=== PATIENT | male | born 1990 | race American Indian/Alaskan Native ===

== ENCOUNTER 2019-11-03 07:42 | Emergency (ER) | payer SELFPAY ==
[2019-11-03 07:51] VITALS: BP 151/95
--- NOTE | 2019-11-03 08:38 | Emergency Department Report ---
Chief Complaint: Shoulder Injury Stated Complaint: RIGHT PAIN Time Seen by Provider: 11/03/19 08:28 - HPI History of Present Illness: 29-year-old -[place]ux[place]bour[place] male presents to the emergency room complaining of nontraumatic right arm and shoulder pain for a week. 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 Patient reports that anything for pain. He denies any direct trauma. Denies any chest pain shortness of breathing nausea vomiting. - Exam Vital Signs: Vital Signs 11/03/19 07:49 Temperature 98.2 F Pulse Rate 89 Respiratory 16 Rate Blood Pressure 151/95 O2 Sat by Pulse 100 Oximetry Physical Exam: Alert and oriented x3 no acute distress nontoxic in appearance Right shoulder no AC joint tenderness full range of motion no rash nonerythematous no swelling abduction and abduction. Ambulatory without difficulties. Stable mood. MSE screening note: Focused history and physical exam performed. Due to findings the following was ordered: 29-year-old -[place]ux[place]bour[place] male presents to the emergency room complaining of nontraumatic right arm and shoulder pain for a week. 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 Patient reports that anything for pain. He denies any direct trauma. Denies any chest pain shortness of breathing nausea vomiting. Recommend Tylenol or ibuprofen or Aleve. Recommend taking it on a scheduled basis for the next few days with increasing his fluid intake. I recommend for follow-up at [facility] for his chronic disease management. Patient verbalized understanding ED Disposition for [facility] [place] Disposition: Z-07 MED SCREENING EXAM-LEFT Is pt being admited?: No Does the pt Need Aspirin: No Condition: Stable Additional Instructions: Recommend taking ibuprofen Tylenol or Aleve on a scheduled basis for the next 3 days. I would like for you to increase your water intake. And follow-up with [facility] for your chronic hypertension. Referrals: [facility] [Primary Care Provider] - 3-5 Days [facility] [Provider Group] - 3-5 Days Forms: Work/School Release Form(ED)
== END 2019-11-03 08:41 | disposition left against medical advice (07) ==
LOC: ED 07:42
DX: M79.601 Pain in right arm (principal); Z53.21 Procedure and treatment not carried out due to patient leaving prior to being seen by health care provider

== ENCOUNTER 2021-07-07 11:53 | Emergency (ER) | payer SELFPAY ==
[2021-07-07] MEDS ORDERED: FAMOTIDINE 20 MG TAB PO ONE (18:05)
[2021-07-07] MEDS ORDERED: diphenhydrAMINE 25 MG CAP PO ONE (18:05)
[2021-07-07] MEDS ORDERED: predniSONE 20 MG TAB PO ONE (18:05)
--- NOTE | 2021-07-07 18:38 | Emergency Department Report ---
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 Patient states that he mowed lawns 2 days ago and thereafter started having persistent diffuse itchy erythematous rashes with irritation and went to [employer] and bought some lotions but that this medication did not help. Patient denies swollen lips and tongue, dysphagia, dysphonia, chest pain or shortness of breath, nausea and vomiting, swollen lips or tongue, swollen face, change in vision, diarrhea and abdominal pain. MD Complaint: Diffuse itchy erythematous maculopapular rashes -: Sudden, days(s) (2) Location: back, abdomen, upper extremity, lower extremity Radiation: non-radiation Severity scale (0 -10): 7 Quality: burning, aching, sharp Consistency: constant Improves with: none Worsens with: other (Scratching) Associated Symptoms: denies other symptoms, rash (Diffuse itchy erythematous maculopapular rashes). denies: confusion, chest pain, cough, diaphoresis, fever/chills, headaches, loss of appetite, malaise, nausea/vomiting, shortness of breath, syncope, weakness Treatments Prior to Arrival: none - Related Data Previous Rx's Medication Instructions Recorded Last Taken Type Famotidine [Pepcid] 20 mg PO BID #60 tablet 07/07/21 Unknown Rx Prednisone [predniSONE 10 mg 10 mg PO .TAPER #21 tab 07/07/21 Unknown Rx (6-Day Pack, 21 Tabs)] diphenhydrAMINE [Benadryl CAP] 50 mg PO Q6HR PRN #40 capsule 07/07/21 Unknown Rx Allergies Allergy/AdvReac Type Severity Reaction Status Date / Time poison brianna extract Allergy Rash Verified 07/07/21 12:11 ED Review of Systems ROS: Stated complaint: RT ARM RASH/POISON BRIANNA Other details as noted in HPI Constitutional: denies: chills, fever Eyes: denies: eye pain, eye discharge, vision change ENT: denies: ear pain, throat pain Respiratory: denies: cough, shortness of breath, wheezing Cardiovascular: denies: chest pain, palpitations Endocrine: no symptoms reported Gastrointestinal: denies: abdominal pain, nausea, diarrhea Genitourinary: denies: urgency, dysuria Musculoskeletal: denies: back pain, joint swelling, arthralgia Skin: rash (Diffuse itchy erythematous maculopapular urticarial rashes), change in color, pruritus. denies: lesions Neurological: denies: headache, weakness, paresthesias Psychiatric: denies: anxiety, depression Hematological/Lymphatic: denies: easy bleeding, easy bruising ED Past Medical Hx - Past Medical History Previous Medical History?: Yes Hx Hypertension: Yes (not taking meds) - Social History Smoking Status: Current Every Day Smoker Substance Use Type: Alcohol - Medications Home Medications: Home Medications Medication Instructions Recorded Confirmed Last Taken Type Famotidine [Pepcid] 20 mg PO BID #60 tablet 07/07/21 Unknown Rx Prednisone [predniSONE 10 mg 10 mg PO .TAPER #21 tab 07/07/21 Unknown Rx (6-Day Pack, 21 Tabs)] diphenhydrAMINE [Benadryl CAP] 50 mg PO Q6HR PRN #40 capsule 07/07/21 Unknown Rx ED Physical Exam - General Limitations: No Limitations General appearance: alert, in no apparent distress - Head Head exam: Present: atraumatic, normocephalic, normal inspection - Eye Eye exam: Present: normal appearance, PERRL, EOMI Pupils: Present: normal accommodation - ENT ENT exam: Present: normal exam, normal orophraynx, mucous membranes moist, TM's normal bilaterally, normal external ear exam - Neck Neck exam: Present: normal inspection, full ROM - Respiratory Respiratory exam: Present: normal lung sounds bilaterally. Absent: respiratory distress, wheezes, rales, stridor, chest wall tenderness, accessory muscle use, decreased breath sounds - Cardiovascular Cardiovascular Exam: Present: regular rate, normal rhythm, normal heart sounds. Absent: systolic murmur, diastolic murmur, rubs, gallop - GI/Abdominal GI/Abdominal exam: Present: soft, normal bowel sounds. Absent: tenderness, guarding, rebound, hyperactive bowel sounds - Rectal Rectal exam: Present: deferred - Extremities Exam Extremities exam: Present: normal inspection, full ROM, normal capillary refill - Back Exam Back exam: Present: normal inspection, full ROM. Absent: tenderness, CVA tenderness (R), CVA tenderness (L), muscle spasm, paraspinal tenderness - Neurological Exam Neurological exam: Present: alert, oriented X3, CN II-XII intact, normal gait - Psychiatric Psychiatric exam: Present: normal affect, normal mood - Skin Skin exam: Present: warm, dry, intact, rash (Diffuse itchy erythematous maculopapular urticarial rash), erythema, urticaria. Absent: normal color ED Course Vital Signs 07/07/21 12:09 Temperature 98.3 F Pulse Rate 74 Respiratory 16 Rate Blood Pressure 127/80 O2 Sat by Pulse 100 Oximetry ED Medical Decision Making - Medical Decision Making This is a 31-year-old -[place] male with no past medical history presents to the ED with complaint of acute onset persistent itchy erythematous maculopapular rashes for the last 2 days after exposure to poison brianna when mowing lawns. Patient states that he mowed lawns 2 days ago and thereafter started having persistent diffuse itchy erythematous rashes with irritation and went to [employer] and bought some lotions but that this medication did not help. In the ED, patient is alert and oriented x3 and is not in any distress. Patient is hemodynamically stable. Patient was treated in the ED for acute allergic reaction after exposure to poison brianna. Patient was discharged home on medications and advised to follow-up with his primary care physician in 7 to 10 days for reevaluation or return to the ED immediately if symptoms get worse - Differential Diagnosis Acute allergic reaction; acute urticaria; irritant dermatitis; Critical care attestation.: If time is entered above; I have spent that time in minutes in the direct care of this critically ill patient, excluding procedure time. ED Disposition Clinical Impression: Poison brinana dermatitis, Acute urticaria, Itching with irritation Acute allergic reaction Qualifiers: Encounter type: initial encounter Qualified Code(s): T78.40XA - Allergy, unspecified, initial encounter Disposition: HOME / SELF CARE / HOMELESS Is pt being admited?: No Does the pt Need Aspirin: No Condition: Stable Instructions: Allergies, Adult, [id number], Poison Brianna Dermatitis, Easy -to-Read, Contact Dermatitis, [id number], Hives, [id number], Rash, Adult, [id number] Additional Instructions: Take medication with food, drink plenty of fluids and follow-up with your primary care physician in 7 to 10 days for reevaluation. Return to the ED immediately if symptoms get worse. Prescriptions: diphenhydrAMINE [Benadryl CAP] 50 mg PO Q6HR PRN #40 capsule PRN Reason: Itching Famotidine [Pepcid] 20 mg PO BID #60 tablet Prednisone [predniSONE 10 mg (6-Day Pack, 21 Tabs)] 10 mg PO .TAPER #21 tab Referrals: [facility] [Provider Group] - 3-5 Days Time of Disposition: 18:39 Print Language: ROMANSH
[2021-07-07 19:55] VITALS: BP 126/72
== END 2021-07-07 18:47 | disposition home or self-care (01) ==
LOC: ED 11:53
DX: T78.40XA Allergy, unspecified, initial encounter (principal); L50.9 Urticaria, unspecified; I10 Essential (primary) hypertension; F17.200 Nicotine dependence, unspecified, uncomplicated; Z72.89 Other problems related to lifestyle; Z79.899 Other long term (current) drug therapy; Z91.09 Other allergy status, other than to drugs and biological substances; X58.XXXA Exposure to other specified factors, initial encounter
CPT/HCPCS: 99282